=== PATIENT | female | born 1975 | race Two or more races ===

== ENCOUNTER 2017-10-29 08:31 | Day surgery (SDC) | payer MEDICAID ==
[~2017-10-29] VITALS: Ht 165.1 cm; Wt 82.6 kg
[~2017-10-29 08:31] MED LIST: ALPR1TAB7 PO; CHOL50007 PO; HYDR4TAB2 PO; HYOS0.1264 PO; METO25TA5 PO; NORT25CA PO; PROM25TA5 PO
[2017-10-29] MEDS ORDERED: LIDOCAINE HCL 2 %PF INJ 10ML AMP IJ ONE (08:55)
[2017-10-29] MEDS ORDERED: fentaNYL CITRATE 100 MCG/2 ML VL ONE (09:39)
[2017-10-29] MEDS ORDERED: MIDAZOLAM HCL 1MG/1ML-2 ML VIAL ONE (09:39)
[2017-10-29] MEDS ORDERED: ISOPROTERENOL IV STA (10:04)
[2017-10-29] MEDS ORDERED: ISOPROTERENOL HCL INJECTION 1 MG in D5W 5% 250 ML IV SCH (10:11)
== END 2017-10-29 12:55 | disposition home or self-care (01) ==
LOC: CATH 08:31
PROVIDERS: ATTEND Specialist
DX: I73.9 Peripheral vascular disease, unspecified (principal); E66.9 Obesity, unspecified
CPT/HCPCS: 93620; C1894; J1644; J3010; J7030; 99152; 99153; J2250; J7060

== ENCOUNTER 2023-02-26 20:12 | Emergency (ER) | payer BC, MEDICAID ==
[~2023-02-26] VITALS: Ht 157.5 cm; Wt 86.0 kg
[2023-02-26 20:12] VITALS: BP 109/61; PULSE 62; RESP 16; TEMP 98.1
[~2023-02-26 20:12] MED LIST changes: +PROM25TA10 PO; -PROM25TA5 PO
[2023-02-26] MEDS ORDERED: HYDROcodone-ACET 5/325MG TAB PO ONE (21:45)
[2023-02-26] MEDS ORDERED: HYDR-4902 PO (21:51)
[2023-02-27 02:41] VITALS: O2SAT 96
== END 2023-02-27 02:41 | disposition home or self-care (01) ==
LOC: ER 20:14
DX: M79.661 Pain in right lower leg (principal); Z86.718 Personal history of other venous thrombosis and embolism; Z79.899 Other long term (current) drug therapy
CPT/HCPCS: 93971

== ENCOUNTER 2023-12-03 18:57 | Emergency (ER) | payer BC, MEDICAID ==
[~2023-12-03] VITALS: Ht 165.1 cm; Wt 82.3 kg
[~2023-12-03 18:57] MED LIST changes: +HYDR-4902 PO; -HYDR4TAB2 PO; +HYDR4TAB3 PO
[2023-12-03 20:20] LABS: Urine Bacteria None Seen /hpf (None Seen); Urine WBC None Seen /hpf (0 - 5)
[2023-12-03 20:29] LABS: Urine Blood Negative /uL (Negative); Urine Clarity Clear (Clear); Urine Color Colorless (Yellow); Urine Protein, UAD Negative (Negative); Urine Specific Gravity 1.002 (1.001-1.035); Urine Urobilinogen Normal (Negative); Urine pH 6.5 (5.0-9.0)
[2023-12-03 21:32] LABS: Basophils # (auto) 0 10 ^3/uL (0-0.2); Basophils % (auto) 0.5 % (0.0-2.0); Eosinophils # (auto) 0.1 10 ^3/uL (0-0.8); Eosinophils % (auto) 1.7 % (0.0-7.0); Hematocrit 37.5 % (36.0-46.0); Hemoglobin 12.5 g/dL (12.2-16.2); Lymphocytes # (auto) 1.3 10 ^3/uL (0.4-5.4); Lymphocytes % (auto) 19.9 % (10.0-50.0); Mean Corpuscular Hemoglobin 29.1 pg (28.0-32.0); Mean Corpuscular Hgb Conc. 33.3 g/dL (32.0-36.0); Mean Corpuscular Volume 87.4 fL (80.0-100.0); Monocytes # (auto) 0.4 10 ^3/uL (0-1.3); Monocytes % (auto) 6.4 % (0.0-12.0); Neutrophils # (auto) 4.6 10 ^3/uL (1.6-8.6); Neutrophils % (auto) 71.5 % (37.0-80.0); Nucleated Red Blood Cells % 0.1 %; Red Blood Cells 4.29 10^6/uL (4.0-5.20); Red Cell Distribution Width 13.5 % (11.8-14.3); White Blood Cell 6.5 10^3/uL (4.4-10.8)
[2023-12-03 21:43] LABS: Alanine Aminotransferase 166 U/L (7-40); Albumin 4.2 g/dL (3.2-4.8); Alkaline Phosphatase 227 U/L (46-116); Anion Gap 6 (5-15); Aspartate Aminotransferase 257 U/L (13-40); BUN/Creatinine Ratio 13.4 (10.0-20.0); Blood Urea Nitrogen 9 mg/dL (9-23); Calcium 9.2 mg/dL (8.7-10.4); Carbon Dioxide 30 mmol/L (20-30); Chloride 104 mmol/L (98-107); Glucose 98 mg/dL (74-106); Lipase 41 U/L (12-53); Potassium 3.4 mmol/L (3.5-5.1); Sodium 140 mmol/L (136-145)
[2023-12-03 21:44] LABS: Bilirubin, Total 0.6 mg/dL (0.2-1.0); Total Protein 7.2 g/dL (5.7-8.2)
[2023-12-03 23:36] VITALS: PULSE 54; RESP 16; O2SAT 100
[2023-12-04 00:32] VITALS: TEMP 97.8; O2SAT 99
[2023-12-04 00:36] VITALS: BP 109/69; PULSE 76; RESP 18
[2023-12-04] MEDS: MORPHINE SULFATE 4 MG/ML SYR/VIAL IV ONE (00:36)
[2023-12-04] MEDS: SODIUM CHLORIDE 0.9% 1,000 ML IV ONE (00:37)
[2023-12-04] MEDS: ONDANSETRON HCL 4 MG/2 ML VIAL IV ONE (00:37)
[2023-12-04] MEDS: PANTOPRAZOLE 40 MG/10 ML VIAL INJ IV ONE (00:37)
== END 2023-12-04 00:19 | disposition short-term general hospital (02) ==
LOC: ER 18:57
DX: K56.609 Unspecified intestinal obstruction, unspecified as to partial versus complete obstruction (principal); R16.1 Splenomegaly, not elsewhere classified; N83.202 Unspecified ovarian cyst, left side; Z79.899 Other long term (current) drug therapy; Z91.048 Other nonmedicinal substance allergy status
CPT/HCPCS: 36415; 74176; 80053; 81001; 81025; 83690; 85025; 96374; 96375; 99285; C9113; J2270; J2405; J7030; 96361

== ENCOUNTER 2025-04-22 13:09 | Outpatient (CLI) | payer MEDICAID ==
[2025-04-22 13:30] LABS: Hematocrit 37.3 % (36.0-46.0); Hemoglobin 12.8 g/dL (12.2-16.2); Mean Corpuscular Hemoglobin 29.8 pg (28.0-32.0); Mean Corpuscular Volume 86.5 fL (80.0-100.0); Nucleated Red Blood Cells % 0.0 %
[2025-04-22 13:54] LABS: Iron 52.0 ug/dL (50-170)
[2025-04-22 13:56] LABS: Alanine Aminotransferase 10 U/L (7-40); Albumin 4.6 g/dL (3.2-4.8); Alkaline Phosphatase 73 U/L (46-116); Anion Gap 12 (5-15); BUN/Creatinine Ratio 10.8 (10.0-20.0); Calcium 9.6 mg/dL (8.7-10.4); Carbon Dioxide 26 mmol/L (20-31); Chloride 104 mmol/L (98-107); Glucose 99 mg/dL (74-106); Potassium 3.5 mmol/L (3.5-5.1); Sodium 142 mmol/L (136-145); Total Protein 7.7 g/dL (5.7-8.2); Triglycerides 106 mg/dL (< 150)
[2025-04-22 13:57] LABS: Bilirubin, Direct 0.2 mg/dL (<0.3); Bilirubin, Total 0.7 mg/dL (0.2-1.0); Cholesterol 162 mg/dL (< 200); Creatine Kinase IFCC 162 U/L (34-145); HDL Cholesterol 54 mg/dL (40-59)
[2025-04-22 13:58] LABS: Blood Urea Nitrogen 9 mg/dL (9-23)
[2025-04-22 14:00] LABS: Carcinoembryonic Antigen < 0.50 ng/mL (<=5.0)
[2025-04-22 14:01] LABS: Ferritin 174.0 ng/mL (10-291)
[2025-04-22 14:02] LABS: Total Iron Binding Capacity 245.0 ug/dL (250-425)
[2025-04-22 14:47] LABS: Urine Amorphous Crystal FEW /hpf (None Seen); Urine Protein, UAD TRACE (Negative)
== END 2025-04-23 17:00 | disposition home or self-care (01) ==
LOC: LAB 13:09
PROVIDERS: ATTEND Internal Medicine
DX: E78.1 Pure hyperglyceridemia (principal); E55.9 Vitamin D deficiency, unspecified; R63.4 Abnormal weight loss; R79.9 Abnormal finding of blood chemistry, unspecified; Z79.899 Other long term (current) drug therapy
CPT/HCPCS: 36415; 80053; 80061; 81001; 82105; 82248; 82306; 82378; 82550; 82607; 82728; 82746; 83036; 83540; 83550; 83615; 85025; 87086